=== PATIENT | female | born 1955 ===

== ENCOUNTER → 2019-10-11 | Outpatient (CLI) | payer MEDICARE | END | disposition home or self-care (01) | LOC: LAB SHORT 14:39 → LAB 14:39 | DX: N39.0 Urinary tract infection, site not specified (principal) | CPT/HCPCS: 87086 ==

== ENCOUNTER → 2020-01-16 | Outpatient (CLI) | payer MEDICARE | END | disposition home or self-care (01) | LOC: LAB 08:34 → LAB SHORT 08:34 | DX: L73.9 Follicular disorder, unspecified (principal) | CPT/HCPCS: 87070; 87205 ==